=== PATIENT | female | born 1960 | race Caucasian/White ===

== ENCOUNTER → 2017-05-04 | Day surgery (SDC) | payer MEDICAID, MEDICARE ==
[~2017-05-04] MED LIST: ASPI-482 PO; ASPI-630 PO; CLOP75TA PO; CYCL10TA2 PO; DULO60CA6 PO; FURO40TA4 PO; HYDROmorphone 2 MG/ML VIAL IV PRN; INSU100C SQ; INSU100I13 SQ; IV RINGERS,LACTATED 1000ML 1,000 ML IV SCH; LIDOCAINE 1% PF 2 ML VIAL. ID PRN; LIDOCAINE 2% PF Vial for OR 5 ML VIAL. ONE; LISI40TA PO; METF-620 PO; METO25TA4 PO; MORPHINE SULFATE 2 MG/ML DISP.SYRIN. IV PRN; MULT-208 PO; OMEP40CA5 PO; ONDANSETRON PF 4 MG/2 ML VIAL. IV PRN; POTA20TA82 PO; PROCHLORPERAZINE 10 MG/2 ML VIAL. IV PRN; PROPOFOL 40 ML IV ONE; RANI300C PO; SIMV40TA3 PO; SUCR1TAB35 PO; VENTOLIN HFA18 GM IH; fentaNYL PF VIAL 100 MCG/2 ML VIAL IV PRN
--- NOTE | 2017-05-04 09:25 | PDOC1 ---
HISTORY & PHYSICAL H&P Michelle Pearce [id number] 1960 04/03/2017 03:20 PM 07/16 Finomial [facility] PATIENTS [facility] [address] [place] [id number] Ph. [phone] Patient: Michelle Pearce Date of : 1960 Date: 04/03/2017 3:20 PM Visit Type: Office Visit This 56 year old female presents for CT results. History of Present Illness: 1. CT results Patient still has some abdominal pain. Her CT scan does reveal complete resolution of diverticulitis. Discussed the need for colonoscopy. Patient will be scheduled at [facility]. INTAKE COMMENTS: Intake Comments: Nurse Note: the pt is here today to discuss results of a CT scan that was done. PROBLEM LIST: Problem Description Onset Date Chronic ischemic heart disease 01/31/2011 Dyspepsia 11/26/2009 Diabetes mellitus without complication 11/26/2009 Diverticulitis of large intestine without perforation or abscess without bleeding 04/10/2016 Uncontrolled type 2 diabetes mellitus with hyperglycemia, unspecified senior care insulin use status 04/10/2016 Gastroesophageal reflux disease 11/26/2009 Obesity 11/26/2009 Asthma 11/26/2009 Diverticular disease of colon 11/26/2009 Hemorrhoids 11/26/2009 Sleep apnea 04/10/2014 Peptic ulcer disease 04/10/2014 Morbid obesity 04/10/2014 Hyperlipidemia 04/10/2014 Coronary artery disease 04/10/2014 Hypertension 04/10/2014 Diabetes mellitus 04/10/2014 Contusion of right great toe with damage to nail, initial encounter 12/27/2015 Yeast vaginitis 12/27/2015 Uncontrolled type 2 diabetes mellitus with hyperglycemia, without long-term current use of insulin 12/27/2015 PAST MEDICAL/SURGICAL HISTORY (Detailed) Disease/disorder Onset Date Management Date Comments Bilateral tubal ligation Cholecystectomy Asthma Coronary artery disease PTCA Stent Diabetes diabetes mellitus Diverticulosis GERD Hemorrhoids hyperlipidemia hypertension Morbid obesity Peptic ulcer disease sleep apnea DIAGNOSTICS HISTORY: Test Ordered Interpretation Result completed Scan MRI 11/14/1999 Normal C-Spine 11/14/1999 Cardiolyte 04/15/2002 Normal EF 55% 04/15/2002 EGD 04/15/2014 abnormal Imp: Antral gastritis, linear ulceration in the body of the stomach, no endoscopic evidence of reflux disease identified, no evidence of hiatal hernia seen either. BX: consistent with reactive gastropathy, with mild chronic inflammation. Focal mucosal ulceration, necrosis and acute inflammation. 04/21/[address] WITH Contrast 02/28/2017 abnormal Imp: Interval resolution of diverticulitis/colitis involving the sigmoid colon. Moderate sigmoid diverticulitis redemonstrated. No abess detected. Stable 5 mm noncalcified left lower lobe nodule, probably benign. Diffuse hepatic steatosis. Nonobstructing 1 mm right renal calculus. Persistent mild cutaneous thickening and sub Q stranding along the bilateral anterior abdominal wall suggesting cellulitis. Diffuse ostepenia. 03/08/2017 Test Ordered Ordering Comments Modifier Scan MRI 11/14/1999 Diagnostic Images Cardiolyte 04/15/2002 Cardiac Studies EGD 04/15/[address] WITH Contrast 02/28/2017 Patient is postmenopausal. Menopause occurred in 2006. Medications (Active): Started Medication Directions Instruction Stopped 03/02/2017 Accu-Chek Sindy strips USE ONE STRIP TO CHECK GLUCOSE 4 TIMES DAILY Dx: DM type II with hyperglycemia E11.65 04/29/2015 albuterol sulfate 2.5 mg/3 mL (0.083 %) solution for nebulization inhale 1 Vial by Nebulization -Unspec route every 6 hours as needed 06/17/2015 albuterol sulfate HFA 90 mcg/actuation aerosol inhaler inhale 2 puff by Inhalation route every 4 - 6 hours as needed 09/24/2014 aspirin 81 mg tablet,delayed release take 1 tablet by oral route every day 01/22/2017 BD ULTRA-FINE PEN NDL [id number] USE TO INJECT INSULIN 6 TIMES DAILY 01/12/2017 Bentyl 10 mg capsule take 1 capsule by oral route 3 times every day 01/02/2017 CLOPIDOGREL 75 MG TABLET TAKE 1 TABLET BY ORAL ROUTE EVERY DAY 06/17/2015 docusate sodium 100 mg tablet take 1 tablet by oral route every day at bedtime as needed 01/12/2017 Dulera 100 mcg-5 mcg/actuation HFA aerosol inhaler INHALE TWO PUFFS TWICE DAILY 02/26/[address] 60 MG CAP TAKE ONE CAPSULE BY MOUTH EVERY DAY 10/22/2015 fluconazole 150 mg tablet take 1 tablet by ORAL route for 1 day take one day only 04/10/2016 Levemir FlexTouch 100 unit/mL (3 mL) subcutaneous insulin pen 75 u bid 03/15/2017 LISINOPRIL 40 MG TABLET TAKE 1 TABLET BY MOUTH EVERY DAY 02/11/2015 loratadine 10 mg tablet take 1 tablet by ORAL route every bedtime 03/15/2017 METFORMIN HCL 1,000 MG TABLET TAKE 1 TABLET BY MOUTH IN THE MORNING AND IN THE EVENING. WITH MEALS 01/31/2011 multivitamin Tab take 1 tablet by oral route every day with food 02/09/2017 nitroglycerin 0.[address] 1 tablet by sublingual route at the 1st sign of attack; may repeat every 5 min until relief; if pain persists after 3 tablets in 15 min, prompt medical attention is recommended 01/17/2017 NOVOLOG 100 UNITS/ML FLEXPEN INJECT 40 UNIT BY SUBCUTANEOUS ROUTE 3 TIMES EVERY DAILY 02/16/2017 potassium chloride ER 20 mEq tablet,extended release(part/cryst) take 1 tablet by oral route every day with food 04/03/2017 promethazine 6.25 mg/5 mL syrup take 1 Teaspoon by ORAL route 3 times every day for 7 days as needed 04/09/2017 02/26/2017 RANITIDINE 300 MG TABLET TAKE 1 TABLET BY MOUTH AT BEDTIME 06/26/2016 SIMVASTATIN 40 MG TABLET TAKE ONE TABLET BY MOUTH ONCE DAILY IN THE EVENING 03/15/2017 TRADJENTA 5 MG TABLET TAKE 1 TABLET BY MOUTH EVERY DAY 01/12/2017 Ventolin HFA 90 mcg/actuation aerosol inhaler INHALE TWO PUFFS BY MOUTH EVERY 4 TO 6 HOURS NEEDED 04/10/2016 Victoza 2-Robert 0.6 mg/0.1 mL (18 mg/3 mL) subcutaneous pen injector inject 6 units by subcutaneous route every morning 06/10/2017 04/03/2017 Zithromax Z-Robert 250 mg tablet take 2 tablet by oral route every day for 1 day then 1 tablet (250 mg) by oral route once daily for 4 days 04/07/2017 Allergies: Ingredient Reaction Medication Name Comment NO KNOWN ALLERGIES REVIEW OF SYSTEMS System Neg/Pos Details Constitutional Negative Chills, fever, malaise and weight loss. ENMT Negative Sore throat. Eyes Negative Double vision. Respiratory Negative Dyspnea and wheezing. Cardio Negative Chest pain and irregular heartbeat/palpitations. GI Positive See HPI. GI Negative See HPI. Negative Dysuria and hematuria. Endocrine Negative Cold intolerance and heat intolerance. Psych Negative Anxiety. Integumentary Negative Hives and rash. MS Negative Joint pain. Bony/Lymph Negative Easy bleeding and easy bruising. Allergic/Immuno Negative Animals at home and food allergies. Reproductive Positive The patient is post-menopausal (The year was 2006). VITAL SIGNS Time BP mm/Hg Pulse /min Resp /min Temp F Ht ft Ht in Ht cm Wt lb Wt kg BMI kg/ m2 BSA m2 O2 Sat% 3:20 PM 118/70 113 98.9 5.0 6.50 168.91 321.80 145.966 51.16 94 Time Measured by 3:20 PM Elizabeth Maxwell PHYSICAL EXAM: Exam Findings Details Constitutional Normal Well developed. Eyes Normal Conjunctiva - Right: Normal, Left: Normal. Sclera - Right: Normal, Left: Normal. Nasopharynx Normal Lips/teeth/gums - Normal. Neck Exam Normal Inspection - Normal. Thyroid gland - Normal. Respiratory Normal Inspection - Normal. Auscultation - Normal. Cardiovascular Normal Regular rate and rhythm. No murmurs, gallops, or rubs. Vascular Normal Pulses - Carotids: Normal, Femoral: Normal, Dorsalis pedis: Normal. Abdomen Normal Inspection - Normal. Anterior palpation - No guarding. No abdominal tenderness. No hepatic enlargement. No splenic enlargement. No hernia. No Ascites. Skin Normal Inspection - Normal. Extremity Normal No edema. Psychiatric Normal Oriented to time, place, person, and situation. Appropriate mood and effect. Assessment/Plan # Detail Type Description 1. Assessment Diverticulitis of large intestine without perforation or abscess without bleeding (K57.32). [place] [facility] [place] Further diagnostic evaluations ordered today include(s) Colonoscopy to be performed today. She is to schedule a follow-up visit with Miri Nguyễn MD upon completion of work-up Electronically signed by: Miri Nguyễn MD 04/03/2017 04:29 PM Document generated by: Miri Nguyễn 04/03/2017 04:29 PM Travis Kang MD, Family Practice; Micheal Beltre MD Internal Medicine; Agusto Mccloud MD, Internal Medicine; Tari Nguyễn MD Internal Medicine; Miri Nguyễn MD, Gastroenterology; Froy Bhakta MD, Rheumatology, S. Jero Campa, Physical Medicine/Rehab Nahun Almanza APRN ------ 05/04/17 Patient seen and examined. No change in H&P. MIRI NGUYỄN MD May 04, 2017 09:25
[2017-05-04 11:37] VITALS: BP 161/82
== END | disposition home or self-care (01) ==
LOC: ENDOS 08:23
PROVIDERS: ATTEND Internal Medicine Gastroenterology
DX: K57.32 Diverticulitis of large intestine without perforation or abscess without bleeding (principal); I25.10 Atherosclerotic heart disease of native coronary artery without angina pectoris; E78.00 Pure hypercholesterolemia, unspecified; K21.9 Gastro-esophageal reflux disease without esophagitis; I10 Essential (primary) hypertension; J45.909 Unspecified asthma, uncomplicated; E66.9 Obesity, unspecified; E11.9 Type 2 diabetes mellitus without complications; F17.200 Nicotine dependence, unspecified, uncomplicated; E78.5 Hyperlipidemia, unspecified; G47.30 Sleep apnea, unspecified; Z90.49 Acquired absence of other specified parts of digestive tract; Z79.82 Long term (current) use of aspirin; Z87.39 Personal history of other diseases of the musculoskeletal system and connective tissue; Z86.39 Personal history of other endocrine, nutritional and metabolic disease; Z79.4 Long term (current) use of insulin; Z88.0 Allergy status to penicillin
CPT/HCPCS: 45378; J2704; J2001